=== PATIENT | female | born 1980 | race Caucasian/White ===

== ENCOUNTER → 2017-02-04 | Outpatient (CLI) | payer BC ==
[~2017-02-04] MED LIST: ALBU1AER9 INH; LEVO150T9 PO; MONT1TAB5 PO; MTR600X PO; OXYC5TAB PO; PRENTAB26 PO
[2017-02-04 15:05] LABS: THYROID STIMULATING HORMONE 14.5 uIu/ml (0.300-4.500)
== END | disposition home or self-care (01) ==
LOC: C.LAB1850 13:17
PROVIDERS: ATTEND Internal Medicine Endocrinology, Diabetes & Metabolism
DX: E03.9 Hypothyroidism, unspecified (principal)